=== PATIENT | female | born 1950 | race Caucasian/White ===

== ENCOUNTER 2022-02-14 12:28 | Outpatient (CLI) | payer MEDICARE | END 2022-02-14 12:29 | disposition home or self-care (01) | LOC: SCSMRI 12:28 | PROVIDERS: ATTEND Internal Medicine | DX: M54.50 Low back pain, unspecified (principal); M51.36 Other intervertebral disc degeneration, lumbar region; M43.17 Spondylolisthesis, lumbosacral region; M51.37 Other intervertebral disc degeneration, lumbosacral region | CPT/HCPCS: 72148 ==

== ENCOUNTER 2022-02-25 12:38 | Outpatient (CLI) | payer MEDICARE | END 2022-02-25 12:39 | disposition home or self-care (01) | LOC: SCSMRI 12:38 | PROVIDERS: ATTEND Internal Medicine | DX: S22.069S Unspecified fracture of T7-T8 vertebra, sequela (principal); M47.814 Spondylosis without myelopathy or radiculopathy, thoracic region | CPT/HCPCS: 72146 ==